=== PATIENT | female | born 1990 | race Caucasian/White ===

== ENCOUNTER 2025-03-21 23:51 | Emergency (ER) | payer BC, OTHER ==
[~2025-03-21] VITALS: Ht 167.6 cm; Wt 68.7 kg
[2025-03-22 00:17] VITALS: O2SAT 98
[2025-03-22] MEDS: METHYLPREDNISOLONE SOD SUCC 125MG/2ML (ACT-O-VIAL) IM STA (02:32)
[2025-03-22] MEDS ORDERED: DIPH25CA83 MT (04:12)
[2025-03-22] MEDS ORDERED: EPIN0.3P3 IM (04:12)
[2025-03-22] MEDS ORDERED: P50 MT (04:12)
[2025-03-22 04:29] VITALS: BP 107/67; PULSE 75; RESP 16; TEMP 36.9; O2SAT 100
== END 2025-03-22 04:32 | disposition home or self-care (01) ==
LOC: ER 23:51
DX: T78.1XXA Other adverse food reactions, not elsewhere classified, initial encounter (principal); Z88.1 Allergy status to other antibiotic agents; Z88.8 Allergy status to other drugs, medicaments and biological substances; Z79.899 Other long term (current) drug therapy; X58.XXXA Exposure to other specified factors, initial encounter
CPT/HCPCS: 99283; 81025; 96372; J2919